=== PATIENT | male | born 1955 | race Caucasian/White ===

== ENCOUNTER 2017-06-09 09:07 | Emergency (ER) | payer OTHER ==
[~2017-06-09] VITALS: Ht 172.7 cm; Wt 76.0 kg
[2017-06-09 09:15] VITALS: BP 145/68; PULSE 72; RESP 16; TEMP 97.5; O2SAT 98
[2017-06-09] MEDS ORDERED: ACETAMINOPHEN/HYDROcodone 325 MG/5 MG TAB PO ONE (09:30)
[2017-06-09] MEDS ORDERED: DICL1CAP3 PO (09:31)
[2017-06-09] MEDS ORDERED: BACL10TA PO (09:31)
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
== END 2017-06-09 09:54 | disposition home or self-care (01) ==
LOC: NEPD 09:07
DX: S16.1XXA Strain of muscle, fascia and tendon at neck level, initial encounter (principal); V43.52XA Car driver injured in collision with other type car in traffic accident, initial encounter
CPT/HCPCS: 99283